=== PATIENT | male | born 1945 | race Caucasian/White ===

== ENCOUNTER → 2019-03-21 12:44 | Outpatient (CLI) | payer MEDICARE ==
--- NOTE | 2019-03-28 11:09 | EC ---
PATIENT:MARCI RAY JR DATE OF SERVICE: 03/21/19 SEX: M MEDICAL RECORD: [id number] DATE OF : 43 LOCATION:[facility], [place] AGE OF PATIENT: 73 ADMISSION DATE: 03/21/19 REFERRING PHYSICIAN: INTERPRETING PHYSICIAN: MANUELA LUX MD ECHOCARDIOGRAM REPORT ECHO CHARGES 4 ECHO COMPLETE Date: 03/21/19 CLINICAL DIAGNOSIS: AI H/O HTN ECHOCARDIOGRAPHIC MEASUREMENTS (adult normal given) AC root (d.<3.7cm) 3.6 cm LV Septum d (<1.2 cm> 1.1 cm Valve Excursion 2.0 cm LV Septum (systole) 2.0 cm Left Atria (s.<4.0cm> 3.2 cm LVPW d(<1.2cm) 1.1 cm RV (d.<2.3cm) 2.9 cm LVPW (sytole) 2.2 cm LV diastole(<5.6CM) 5.2 cm MV E-F(>70mm/sec) cm LV systole 1.9 cm LVOT Diameter 1.7 cm MV exc.(>10mm) cm Est.ejection fraction (50-75%) % DOPPLER: LVIT cm/sec A 86.0 cm/sec E 58.0 cm/sec LA cm/sec RVSP 39.1 mmHg LVOT 139 cm/sec AOP1/2T m/s Asc. Ao 202 cm/sec RVOT 57.0 cm/sec RA cm/sec PA 95.0 cm/sec AV Gradient Peak 16.3 mmHg AV Mean 6.9 mmHg AV Area 1.8 cm MV Gradient Peak 4.1 mmHg MV Mean 1.3 mmHg MV Area cm COMMENTS: OP - HC Overlock Sewing Machine Operator: 1 OMAR FRANCISCO Brush Filler Hand: 1 Dr. Lux TAPE# PACS Pericardial Effusion N DATE OF SERVICE: 03/21/2019 ECHOCARDIOGRAM FINDINGS: 1. Left ventricular chamber size is within normal limits. Left ventricular systolic function is normal. Overall ejection fraction estimated at 55%. 2. Left atrium is within normal limits at 3.2 cm. Right atrium and right ventricular chamber sizes are mildly dilated. 3. Valvular structures have normal structure and motion. ECHOCARDIOGRAM REPORT [id number] CORY ROTHMAN,RAY 4. Doppler interrogation reveals [id number] aortic insufficiency, trace mitral regurgitation, moderate tricuspid regurgitation, no other valvular insufficiency or stenosis. Pulmonary systolic pressure is estimated at 39 mmHg. 5. No evidence of pericardial effusion or left ventricular thrombus. TRANSINT:[id number] Voice Confirmation ID: [id number] DOCUMENT ID: [id number] MANUELA LUX MD at 1109 CC: [id number] DICTATION DATE: 03/21/19 1600 CUSTOMER SERVICE SALES CONSULTANT: 03/21/19 1630 DEP CLI 03/21/19 [place] [id number] [place] [id number]
== END | disposition home or self-care (01) ==
LOC: D.HCCARDIO 12:44
PROVIDERS: ATTEND Internal Medicine Interventional Cardiology
DX: I35.1 Nonrheumatic aortic (valve) insufficiency (principal)

== ENCOUNTER → 2020-04-09 08:31 | Outpatient (CLI) | payer MEDICARE | END | disposition home or self-care (01) | LOC: D.HCCECHO 08:30 | PROVIDERS: ATTEND Internal Medicine Cardiovascular Disease | DX: I35.1 Nonrheumatic aortic (valve) insufficiency (principal) ==